=== PATIENT | male | born 1950 | race Caucasian/White ===

== ENCOUNTER → 2017-10-04 15:04 | Outpatient (CLI) | payer MEDICARE, BC, SELFPAY ==
[2017-10-04 15:56] LABS: Basophils % 0.2 % (0.1-2.0); Eosinophils # 0.1 K/mm3 (0.0-0.4); Hematocrit 48.7 % (42.0-52.0); Lymphocytes # 1.8 K/mm3 (0.7-4.5); Lymphocytes % 19.1 K/mm3 (10-50); Mean Corpuscular HGB Conc 32.9 g/dL (31.8-35.4); Mean Corpuscular Hemoglobin 29.8 pg (27.0-31.2); Mean Corpuscular Volume 90.5 fl (80-94); Mean Platelet Volume 8.9 fl (7.4-10.4); Monocytes # 0.7 K/mm3 (0.1-1.0); Monocytes % 7.3 % (1.7-9.3); Neutrophils # 6.8 K/mm3 (1.8-7.8); Neutrophils % 72.3 % (37.0-80.0); Platelet Count 210 K/mm3 (142-424); Red Blood Count 5.38 M/mm3 (4.60-6.20); Red Cell Distribution Width 12.8 % (11.5-17.5); White Blood Count 9.4 K/mm3 (4.8-10.8)
[2017-10-04 16:59] LABS: Alanine Aminotransferase 84 U/L (12-78); Albumin/Globulin Ratio 1.3 (1.1-1.8); Alkaline Phosphatase 116 U/L (46-116); Anion Gap 11.5 mEq/L (5-15); Bilirubin,Total 0.7 mg/dL (0.2-1.0); Blood Urea Nitrogen 17 mg/dL (7-18); Calcium 9.1 mg/dL (8.5-10.1); Carbon Dioxide 32 mmol/L (21.0-32.0); Chloride 106 mmol/L (98-107); Creatinine,Serum 1.08 mg/dL (0.70-1.30); Estimated Glomerular Filt Rate 68 ml/min (>60); GFR (African American) 82 ML/MIN (>60); Globulin 3.2 gm/dl (1.3-3.2); Glucose 106 mg/dL (74-106); Sodium 145 mmol/L (136-145); Total Protein,Serum 7.2 gm/dL (6.4-8.2)
[2017-10-04 17:07] LABS: Potassium 4.5 mmoL/L (3.5-5.1)
[2017-10-04 17:08] LABS: Aspartate Amino Transferase 36 U/L (15-37)
== END ==
PROVIDERS: PCP Internal Medicine Adolescent Medicine; Visit Provider Internal Medicine Adolescent Medicine
DX: I88.9 Nonspecific lymphadenitis, unspecified (principal)
CPT/HCPCS: 36415; 80053; 85025

== ENCOUNTER → 2017-10-05 08:37 | Outpatient (CLI) | payer MEDICARE, BC, SELFPAY ==
--- NOTE | 2017-10-05 08:46 | CT_ITS ---
CT soft tissue neck with con INDICATION: Right cervical lymphadenopathy ITS.REASON: CERVICAL LYMPHADENITIS ORDERING PHYSICIAN: Devyn Velazquez MD PATIENT AGE: 67 years COMPARISON: None TECHNIQUE: Axial images are obtained with 75 mL Isovue-370 . Sagittal and coronal reformatted images are reviewed as well. FINDINGS: The nasopharynx has an unremarkable appearance no parotid mass. Unremarkable submandibular glands. The thyroid gland has an unremarkable appearance as does the epiglottis and glottic region and uvula. There is a 2.5 x 1.6 x 1.1 cm complex nodular density in the right aspect of the neck between the sternocleidomastoid and jugular vein consistent with an enlarged lymph node with some enhancement along the periphery with slight decreased attenuation centrally. This corresponds to the area of palpable abnormality. No other enlarged lymph nodes are evident. Lung apices are clear. IMPRESSION: Mildly enlarged right jugular lymph node 2.5 x 1.6 by 1.1 cm. No other adenopathy apparent. Recommend follow-up to confirm resolution. Does not resolve in 4-6 weeks then, ultrasound-guided fine-needle aspiration could be performed.
== END ==
PROVIDERS: Family Provider Internal Medicine Adolescent Medicine; PCP Internal Medicine Adolescent Medicine; Visit Provider Internal Medicine Adolescent Medicine
DX: I88.9 Nonspecific lymphadenitis, unspecified (principal)
CPT/HCPCS: 70491; 70492; Q9967

== ENCOUNTER 2021-01-13 17:00 | Outpatient (RCR) | payer MEDICARE, BC, SELFPAY | END 2021-01-13 17:05 | disposition home or self-care (01) | LOC: PT 17:00 | PROVIDERS: PCP Internal Medicine Adolescent Medicine; Visit Provider Orthopaedic Surgery | DX: M25.512 Pain in left shoulder (principal) | CPT/HCPCS: 97014; 97110; 97140; 97163; 97164; G0283 ==

== ENCOUNTER 2025-05-15 10:07 | Day surgery (SDC) | payer MEDICARE, BC, SELFPAY ==
[2025-05-09 12:46] VITALS: BMI 24.3
--- NOTE | 2025-05-13 14:07 | EXP.HP ---
History of Present Illness *Admission Date: 05/15/25 *History of present illness: Mr. Dunn is a 74-year-old gentleman who is here for follow-up screening/surveillance colonoscopy. The patient's mother had colon cancer in her early 70s. He has had several adenomatous polyps removed over several colonoscopies. His colonoscopy in May 2005 revealed a single polyp (tubular adenoma) which was removed. His colonoscopy in June 2010 revealed 2 small polyps (tubular adenomas x 2) which were removed. His colonoscopy in September 2015 revealed 3 small polyps (tubular adenomas x 2 and mucosal prolapse polyp x 1) which were removed. His last colonoscopy with me in June 2019 revealed a 2 small polyps (tubular adenomas x 2) which was removed. The examination is deemed medically necessary for screening/surveillance colonoscopy. The patient has been seen, interviewed and examined prior to the procedure by both myself and the anesthesia provider. [facility] Disclaimer: The information contained in this section may have been updated after the patient was seen, as this information can be updated by other users. Medical History BPH (benign prostatic hyperplasia) Cholecystectomy planned Hyperlipidemia Hypertension History of gastroesophageal reflux (GERD) Surgical History H/O shoulder surgery Family History Mother Colon cancer Father Emphysema of lung Social History (Updated 05/15/25 @ 10:57 by Jose Persaud CRNA) Smoking Status: Never smoker alcohol intake: current substance use type: denies use current occupational status: employed Travel in the last 8 weeks?: None Have you lived/traveled outside [place] in past 30 days?: No Contact w/someone who lives/traveled outside US past 30 days?: No Exposure to someone with infectious disease in past 14 days?: No Do you have a fever (greater than 100.4 F or 38 C)?: No Have you tested positive for COVID-19?: No Exposed to someone with COVID-19 in past 14 days?: No Do you have a sore throat?: No Do you have a cough?: No Do you have any weakness?: No Are you experiencing any nausea/vomitting?: No Do you have any diarrhea?: No Are you experiencing any unusual bleeding?: No Do you have any muscle aches/pain?: No Do you have any abdominal pain?: No Are you experiencing loss of taste or smell?: No Review of Systems Review of Systems Review of systems (narrative): Negative *Cardiovascular Comments: Negative *Gastrointestinal Comments: Negative *Genitourinary Comments: Negative *Musculoskeletal Comments: Negative *Neurologic Comments: Negative Meds Home Medications and Allergies Home Medications ?Medication ?Instructions ?Recorded ?Confirmed ?Type sodium,potassium,mag sulfates 17.5 See Rx Instructions PO .COMPLEX 04/21/25 Rx gram-3.13 gram-1.6 gram oral soln #354 mL (Suprep Bowel Prep Kit) atorvastatin 80 mg tablet 80 mg PO HS 05/09/25 05/09/25 History carvedilol 12.5 mg tablet (Coreg) 12.5 mg PO BID 05/09/25 05/15/25 History pantoprazole 40 mg tablet,delayed 40 mg PO HS 05/09/25 05/09/25 History release New Prescriptions to Start Prescriptions: Allergies Allergy/AdvReac Type Severity Reaction Status Date / Time omeprazole Allergy Redness of Verified 05/15/25 10:43 Skin Exam *Routine HEENT Exam Head: Present normocephalic Eye: Present EOMI and PERRL ENT: Present mucous membranes moist *Routine Neck Exam Neck: Present supple *Routine Respiratory Exam Respiratory: Present CTA bilaterally *Routine Cardiovascular Exam Cardiovascular: Present RRR *Routine Abdominal Exam Abdominal: Present soft and normoactive bowel sounds; Absent tenderness *Routine Rectal Exam Rectal:: deferred *Routine Genitalia Exam Genitalia:: deferred *Routine Extremities Exam Extremities: Absent cyanosis, clubbing or edema *Routine Skin Exam Skin: Present warm; Absent rash *Routine Neurological Exam Neurological: Present alert and oriented X3 Assessment and Plan *Assessment and plan (1) Personal history of adenomatous and serrated colon polyps: Status: Acute Category: Medical Code(s): Z86.0101 - Personal history of adenomatous and serrated colon polyps (2) Family history of colon cancer in mother: Status: Acute Category: Medical Code(s): Z80.0 - Family history of malignant neoplasm of digestive organs (3) Screening for colon cancer: Status: Acute Category: Medical Code(s): Z12.11 - Encounter for screening for malignant neoplasm of colon Plan A/P: 1. Personal history of adenomatous colon polyps and family history of colon cancer (mother) is the preprocedural diagnosis. The patient will be anesthetized/sedated using MAC sedation. The patient has been seen and examined. Cardiac and lung assessment prior to the examination is stable. Proceed with planned screening/surveillance colonoscopy.
[2025-05-15 10:34] VITALS: BP 156/90; PULSE 58; RESP 16; TEMP 36.8; O2SAT 100; BMI 26.6
[2025-05-15] MEDS: LACTATED RINGERS 1000ML 1,000 ML 50 ML IV (10:46)
--- NOTE | 2025-05-15 10:56 | P.PNANES_ITS ---
[facility] Disclaimer: The information contained in this section may have been updated after the patient was seen, as this information can be updated by other users. Medical History BPH (benign prostatic hyperplasia) Cholecystectomy planned Hyperlipidemia Hypertension History of gastroesophageal reflux (GERD) Surgical History H/O shoulder surgery Family History Mother Colon cancer Father Emphysema of lung Social History (Updated 05/15/25 @ 10:35 by Denisa Alarcon RN) Smoking Status: Never smoker alcohol intake: current substance use type: denies use current occupational status: employed Travel in the last 8 weeks?: None [facility] Anesthesia Checklist Patient Identification Patient Identification: Arm Band Structural Data Admitted From: Home Planned Operative Procedure/s: Colonoscopy Consent for Planned Operative Procedure(s) Verified: Yes Verified Documents: Surgical Consent and History and Physical NPO Status Verified Time NPO: 09:00 (finished prep) Additional verifications Anesthesia Reactions: No Airway Assessment Mallampati Score:: Class II C-Spine Mobility Assessed: Yes TMJ Mobility Assessed: Yes Dentition: Good Dentition Neurological Assessment Level of Consciousness: Awake, Alert and Appropriate Anesthesia Plan Anesthesia Risk discussed: Yes Anesthesia Plan: Verified ASA Class: II Anesthesia Type: MAC
--- NOTE | 2025-05-15 11:20 | P.PCN_ITS ---
[facility] Procedure Note Date: 05/15/25 Time: 11:50 Procedure Note:: Colonoscopy Procedure Report: Colonoscopy with cold snare polypectomy Endoscopist: Sal Infante II, MD Referring physician: Moises Reinoso MD, [address] [place] [address] Date of Procedure: May 15, 2025 Equipment: Olympus [id number] adult colonoscope Sedation: MAC sedation Indication: Mr. Dunn is a 74-year-old gentleman who is here for follow-up screening/surveillance colonoscopy. The patient's mother had colon cancer in her early 70s. He has had several adenomatous polyps removed over several colonoscopies. His colonoscopy in May 2005 revealed a single polyp (tubular adenoma) which was removed. His colonoscopy in June 2010 revealed 2 small polyps (tubular adenomas x 2) which were removed. His colonoscopy in September 2015 revealed 3 small polyps (tubular adenomas x 2 and mucosal prolapse polyp x 1) which were removed. His last colonoscopy with me in June 2019 revealed a 2 small polyps (tubular adenomas x 2) which was removed. The patient reports no abdominal pain, weight loss, change in his bowel habits or rectal bleeding. The examination is deemed medically necessary for screening/surveillance colonoscopy. Procedure: Prior to the procedure, a history and physical exam was performed, and patient's medications and allergies were reviewed. The risks, benefits and alternatives of the sedation and procedure were discussed with the patient. All questions were answered and informed consent was obtained. The patient was brought to the procedure room. Patient identification and proposed procedure were verified by the physician and the nurse. The patient was placed in a left lateral decubitus position and the scope was passed under direct vision. Throughout the procedure, the patient's blood pressure, pulse, and oxygen saturations were monitored continuously. The colonoscopy was accomplished without difficulty. The patient tolerated the procedure well. Findings: On digital rectal examination there was normal rectal tone. There were no external hemorrhoids. The prostate was moderately enlarged, 3+, smooth, symmetric without nodules. The colonoscope was introduced through the anal canal to the rectum and advanced to the cecum. The ileocecal valve and appendiceal orifice were identified. The scope was advanced a short distance into the ileum which appeared grossly normal. The scope was then withdrawn into the colon. There were 4 polyps (ascending x 3 (3, 3 and 4 mm) and transverse x 1 (4 mm)). These were all removed via cold snare polypectomy. The remaining cecum, ascending and transverse colon and mucosa were grossly normal. There were scattered diverticuli throughout the descending and sigmoid colon (LEFT colon). The rectum itself was normal. Upon retroflexion within the rectum there were grade 2 internal hemorrhoids. The preparation was excellent throughout with [place] Preparation Score of 9. The cecal time was 15 minutes. Impression: 1. Diminutive colonic polyps x 4 2. Left-sided diverticulosis 3. Grade 2 internal hemorrhoids Plan: I will follow-up the polyp histology and discuss screening/surveillance colonoscopy in 5 years. This will certainly be based upon his good health and desire to continue preventative surveillance. I would continue psyllium fiber supplementation on a long-term daily maintenance basis.
[2025-05-15 11:50] VITALS: BP 108/64; PULSE 66; RESP 20; TEMP 36.4; O2SAT 96
[2025-05-15 12:00] VITALS: BP 98/58; PULSE 63; RESP 20; TEMP 36.4; O2SAT 99
[2025-05-15 12:10] VITALS: BP 99/61; PULSE 62; RESP 20; TEMP 36.4; O2SAT 95
[2025-05-15 12:20] VITALS: BP 110/74; PULSE 61; RESP 20; TEMP 35.5; O2SAT 95
== END 2025-05-15 12:38 | disposition home or self-care (01) ==
PROVIDERS: PCP Family Medicine; Visit Provider Internal Medicine Gastroenterology
PROC: 0DJD8ZZ Inspection of Lower Intestinal Tract, Via Natural or Artificial Opening Endoscopic (ICD-10-PCS; CPT 45378; principal; 2025-05-15 12:00)
DX: Z12.11 Encounter for screening for malignant neoplasm of colon (principal); D12.2 Benign neoplasm of ascending colon; D12.3 Benign neoplasm of transverse colon; N40.0 Benign prostatic hyperplasia without lower urinary tract symptoms; K64.1 Second degree hemorrhoids; K57.30 Diverticulosis of large intestine without perforation or abscess without bleeding; K21.9 Gastro-esophageal reflux disease without esophagitis; I10 Essential (primary) hypertension; E78.5 Hyperlipidemia, unspecified; Z86.0101 Personal history of adenomatous and serrated colon polyps; Z80.0 Family history of malignant neoplasm of digestive organs
CPT/HCPCS: 45385; J2003; J2704; J7120